=== PATIENT | female | born 1955 | race Caucasian/White ===

== ENCOUNTER 2018-12-13 06:00 | Day surgery (SDC) | payer OTHER ==
[2018-12-13] MEDS ORDERED: PROPOFOL 40 ML (07:28)
== END 2018-12-13 12:07 | disposition home or self-care (01) ==
LOC: GIL 06:00
DX: Z12.11 Encounter for screening for malignant neoplasm of colon (principal); K64.8 Other hemorrhoids
CPT/HCPCS: 45378